=== PATIENT | female | born 1990 | race Caucasian/White ===

== ENCOUNTER → 2018-02-18 15:18 | Outpatient (CLI) | payer OTHER, SELFPAY ==
[2018-02-20 17:59] LABS: Progesterone <0.2 ng/ml
== END ==
PROVIDERS: Visit Provider Obstetrics & Gynecology
DX: N97.0 Female infertility associated with anovulation (principal)
CPT/HCPCS: 36415; 84144

== ENCOUNTER 2018-04-01 11:27 | Outpatient (CLI) | payer OTHER, SELFPAY ==
[2018-04-01 22:00] LABS: Progesterone 8.7 ng/ml
== END 2018-04-01 11:47 ==
PROVIDERS: PCP Nurse Practitioner; Visit Provider Obstetrics & Gynecology
DX: N97.0 Female infertility associated with anovulation (principal)
CPT/HCPCS: 36415; 84144

== ENCOUNTER 2018-04-29 10:34 | Outpatient (CLI) | payer OTHER, SELFPAY ==
[2018-04-29 23:38] LABS: Progesterone 11.8 ng/ml
== END 2018-04-29 10:54 ==
PROVIDERS: PCP Nurse Practitioner; Visit Provider Obstetrics & Gynecology
DX: N97.0 Female infertility associated with anovulation (principal)
CPT/HCPCS: 36415; 84144

== ENCOUNTER 2018-05-07 09:57 | Outpatient (CLI) | payer OTHER, SELFPAY ==
[2018-05-07 11:45] LABS: HCG Quant, Pregnancy 2 mIU/mL (1-3)
== END 2018-05-07 10:17 ==
PROVIDERS: PCP Nurse Practitioner; Visit Provider Obstetrics & Gynecology
DX: O20.0 Threatened abortion (principal)
CPT/HCPCS: 36415; 84702

== ENCOUNTER 2018-05-09 12:17 | Outpatient (CLI) | payer OTHER, SELFPAY ==
[2018-05-09 13:32] LABS: HCG Quant, Pregnancy 1 mIU/mL (1-3)
== END 2018-05-09 12:37 ==
PROVIDERS: PCP Nurse Practitioner; Visit Provider Obstetrics & Gynecology
DX: O20.0 Threatened abortion (principal)
CPT/HCPCS: 36415; 84702

== ENCOUNTER 2018-07-07 13:47 | Outpatient (REF) | payer OTHER, SELFPAY ==
[2018-07-07 15:20] LABS: *AMPHETAMINES SCREEN URINE Negative (Negative); *BARBITURATES SCREEN URINE Negative (Negative); *BENZODIAZEPINES SCREEN URINE Negative (Negative); Cannabinoids THC Negative (Negative); Cocaine Screen,Urine Negative (Negative); METHADONE URINE SCREEN Negative (Negative); OPIATES URINE SCREEN Negative (Negative)
[2018-07-07 15:33] LABS: Tricyclic Antidepressants Negative (Negative)
[2018-07-11 06:51] LABS: Buprenorphine Negative; Norbuprenorphine Negative
[2018-07-11 13:51] LABS: Chlamydia Result Negative; GC Result Negative; Specimen Description URINE
== END 2018-07-07 14:07 ==
LOC: LBN 13:47
PROVIDERS: PCP Nurse Practitioner; Visit Provider Advanced Practice Midwife
DX: Z34.91 Encounter for supervision of normal pregnancy, unspecified, first trimester (principal); Z11.3 Encounter for screening for infections with a predominantly sexual mode of transmission
CPT/HCPCS: 80307; 87491; 87591; 87086

== ENCOUNTER 2018-07-13 10:53 | Outpatient (CLI) | payer OTHER, SELFPAY ==
[2018-07-13 12:01] LABS: Glucose,1 Hr (Glucola) 112 mg/dL (80-140)
[2018-07-13 12:12] LABS: Abs Immature Grans 0.02 k/cumm (0.0-0.09); Absolute Basophil Count 0.02 k/cumm (0.0-0.2); Absolute Eosinophil Count 0.11 k/cumm (0.0-0.7); Absolute Lymphocyte Count 2.09 k/cumm (1.2-3.4); Absolute Monocyte Count 0.77 k/cumm (0.11-0.7); Absolute Neutrophil Count 5.79 k/cumm (1.2-6.7); Basophils % 0.2; Eosinophils % 1.3; HCT 37.9 % (36.0-46.0); Immature Grans % 0.2; Lymphocytes % 23.8; Mean Corp. HGB Concentration 34.3 g/dL (32.0-36.0); Mean Corpuscular Hemoglobin 31.2 pg (27.0-33.0); Mean Corpuscular Volume 90.9 fL (80-95); Mean Platelet Volume 9.3 fL (8.0-11.0); Monocytes % 8.8; Neutrophils % 65.7; Platelet Count 331 x1000/uL (130-400); RBC 4.17 m/cumm (4.00-5.20); RBC Distribution Width 12.4 % (11.7-14.6)
[2018-07-14 10:49] LABS: Rubella IgG Ab (UVM) Positive; Syphilis Serology (RPR) Negative (Negative)
[2018-07-14 10:52] LABS: Varicella IgG Antibody Positive
[2018-07-14 12:19] LABS: Hepatitis C Ab w Rflx HCV PCR Negative (NEGAT)
[2018-07-14 12:31] LABS: HIV-1/2 Ag & Ab Screen Negative (NEGAT)
[2018-07-14 12:35] LABS: Hepatitis B Surface Ag Negative (NEGAT)
== END 2018-07-13 11:13 ==
PROVIDERS: PCP Nurse Practitioner; Visit Provider Advanced Practice Midwife
DX: Z34.91 Encounter for supervision of normal pregnancy, unspecified, first trimester (principal); Z11.59 Encounter for screening for other viral diseases; Z01.84 Encounter for antibody response examination; Z11.4 Encounter for screening for human immunodeficiency virus [HIV]
CPT/HCPCS: 80055; 82950; 86787; 86803; 86850; 86900; 86901; 87340; 87389; 86592; 86762

== ENCOUNTER 2018-08-09 01:16 | Outpatient (CLI) | payer OTHER, SELFPAY ==
--- NOTE | 2018-08-09 09:00 | DI.US_ITS ---
SYMPTOM/DIAGNOSIS: SIZE GREATER THAN DATES, Z34.91 OB ULTRASOUND: The fetus is in variable position. The placenta is anterior. The biometric measurements correspond to 14 weeks 3 days and an EDC of 04 February 2019 cardiac activity was demonstrated at 150 BPM. The left ovary appeared normal. The right ovary is unable to be visualized. The amount of amniotic fluid appears normal. IMPRESSION: Living intrauterine gestation measuring 14 weeks 3 days. Many abnormalities cannot be diagnosed. A normal exam does not exclude a congenital anomaly. Radiology No. [id number] LMP: 05/05/18 Exam Date: 08/09/18 [facility] wks days on EDC ([facility]) 02/09/19 Confirmed: HISTORY: 1ST TRIMESTER (DATING). S>d ? MULTIPLE GESTATION. PREDICTED GESTATIONAL AGE NUMBER 13 +5 weeks with a range of 12 +5 week to 14 +5 weeks. 1 Determined by_XX__1STUS___LMP___HISTORY Info. pertaining to fetus # PLACENTA PRESENTATION Grade 0 Cephalic___ Anterior_XX__Posterior___ Breech____ Right Left Transverse(head right___ Fundal___Low-lying___Previa___ Transverse(head left___ Varying___XX___ BIOMETRY AMNIOTIC FLUID BPD: 28 mm 14 +4 weeks Normal HC: 99 mm 14 +4 weeks AC: 82 mm 14 +4 weeks FL: 14 mm 14 +2 weeks AMNIOTIC FLUID INDEX >26 WK CRL: mm weeks Cisterna Magna: mm CI: 77 RUQ: LUQ Cerebellum: cm EFW: grams Percentile RLQ: LLQ Total: cms Composite AGE= 14 +3 wks EDC by US__02/04/19 BIOPHYSICAL PROFILE ANATOMY IDENTIFIED SCORE 0/2 Heart: 4-Chamber___Rate:BPM__150 BPM___ LVOT: RVOT: Amniotic Fluid(>2cms)____ Stomach: Kidneys: Respirations (>30 secs) Bladder: Post. Fossa: Body Flex/Extension 3 vessel cord: Ventricles: cord insertion: Lips:____ Extremity Flex/Extension spinal morphology: Nose: Total Score= Palate: NS=not seen
== END 2018-08-09 01:36 ==
PROVIDERS: PCP Nurse Practitioner; Visit Provider Advanced Practice Midwife
DX: Z34.91 Encounter for supervision of normal pregnancy, unspecified, first trimester (principal); O26.841 Uterine size-date discrepancy, first trimester
CPT/HCPCS: 76801

== ENCOUNTER 2018-09-16 00:27 | Outpatient (CLI) | payer OTHER, SELFPAY ==
--- NOTE | 2018-09-16 09:27 | DI.US_ITS ---
SYMPTOMS/DIAGNOSIS: SURVEY, Z34.90 OB ULTRASOUND: Routine examination was performed. There is a single living intrauterine gestation. Estimated sonographic age is 19 weeks 4 days. No or placental abnormalities were identified. The heart rate is 141 bpm. The fetus was in various positions during the examination. Amniotic fluid appears within normal limits. IMPRESSION: Single living intrauterine gestation. Estimated sonographic age is 19 weeks 4 days. Many abnormalities cannot be diagnosed. A normal exam does not exclude a congenital anomaly. Radiology No. [id number] LMP: Exam Date: [facility] wks days on EDC ([facility]) 02/09/19 Confirmed: HISTORY: survey PREDICTED GESTATIONAL AGE NUMBER 19+1 weeks with a range of 18+1 weeks to 20+1 weeks. 1 Determined by___1STUS___LMP___HISTORY Info. pertaining to fetus # PLACENTA PRESENTATION Grade I Cephalic___ Anterior X Posterior___ Breech____ Right Left Transverse(head right___ Fundal___Low-lying___Previa Transverse(head left___ Varying X BIOMETRY AMNIOTIC FLUID BPD: 44 mm 19+3 weeks Normal HC: 171 mm 19+5 weeks AC: 146 mm 19+6 weeks FL: 31 mm 19+3 weeks AMNIOTIC FLUID INDEX >26 WK CRL: mm weeks Cisterna Magna: 3.7 mm CI: 78.3 RUQ: LUQ Cerebellum: 1.91 cm EFW: 306 grams Percentile 76% RLQ: LLQ Total: cms Composite AGE= 19+4 wks EDC by US 02/06/19 BIOPHYSICAL PROFILE ANATOMY IDENTIFIED SCORE 0/2 Heart: 4-Chamber X Rate: 141 BPM LVOT: X RVOT: X Amniotic Fluid(>2cms)____ Stomach: X Kidneys: X Respirations (>30 secs) Bladder: X Post. Fossa: X Body Flex/Extension 3 vessel cord: X Ventricles: X cord insertion: X Lips: X Extremity Flex/Extension spinal morphology: X Nose: X Total Score= Palate: X NS=not seen
== END 2018-09-16 00:47 ==
PROVIDERS: PCP Nurse Practitioner; Visit Provider Advanced Practice Midwife
DX: Z34.92 Encounter for supervision of normal pregnancy, unspecified, second trimester (principal)
CPT/HCPCS: 76805

== ENCOUNTER 2018-11-09 09:20 | Outpatient (CLI) | payer OTHER, SELFPAY ==
[2018-11-09 09:51] LABS: Glucose,1 Hr (Glucola) 96 mg/dL (80-140)
[2018-11-09 09:56] LABS: HCT 36.3 % (36.0-46.0); HGB 12.3 g/dL (12.0-15.5); Mean Corp. HGB Concentration 33.9 g/dL (32.0-36.0); Mean Corpuscular Hemoglobin 31.9 pg (27.0-33.0); Mean Corpuscular Volume 94.3 fL (80-95); Mean Platelet Volume 9.1 fL (8.0-11.0); Platelet Count 260 x1000/uL (130-400); RBC 3.85 m/cumm (4.00-5.20); RBC Distribution Width 13.1 % (11.7-14.6); White Blood Cell Count 6.25 k/cumm (4.4-10.8)
== END 2018-11-09 09:40 ==
PROVIDERS: PCP Nurse Practitioner; Visit Provider Advanced Practice Midwife
DX: Z34.93 Encounter for supervision of normal pregnancy, unspecified, third trimester (principal)
CPT/HCPCS: 36415; 82950; 85027

== ENCOUNTER 2018-12-26 10:48 | Outpatient (CLI) | payer OTHER, SELFPAY | END 2018-12-26 11:08 | PROVIDERS: PCP Nurse Practitioner; Visit Provider Advanced Practice Midwife | DX: Z39.1 Encounter for care and examination of lactating mother (principal) | CPT/HCPCS: E0602 ==

== ENCOUNTER 2019-01-16 12:07 | Outpatient (REF) | payer OTHER, SELFPAY ==
[2019-01-16 13:15] LABS: *AMPHETAMINES SCREEN URINE Negative (Negative); *BARBITURATES SCREEN URINE Negative (Negative); *BENZODIAZEPINES SCREEN URINE Negative (Negative); Cannabinoids THC Negative (Negative); Cocaine Screen,Urine Negative (Negative); METHADONE URINE SCREEN Negative (Negative); OPIATES URINE SCREEN Negative (Negative)
[2019-01-16 13:19] LABS: Tricyclic Antidepressants Negative (Negative)
== END 2019-01-16 12:27 ==
LOC: LBN 12:07
PROVIDERS: PCP Nurse Practitioner; Visit Provider Advanced Practice Midwife
DX: Z34.93 Encounter for supervision of normal pregnancy, unspecified, third trimester (principal)
CPT/HCPCS: 80307; 87081

== ENCOUNTER 2019-01-30 13:10 | Observation (INO) | payer OTHER, SELFPAY | END 2019-01-30 14:35 | disposition home or self-care (01) | PROVIDERS: Admitting Provider Advanced Practice Midwife; PCP Nurse Practitioner; Visit Provider Advanced Practice Midwife | DX: O47.1 False labor at or after 37 completed weeks of gestation (principal); Z3A.38 38 weeks gestation of pregnancy | CPT/HCPCS: 59025; G0378 ==

== ENCOUNTER 2019-02-03 07:26 | Inpatient (IN) | payer OTHER, SELFPAY ==
[2019-02-03 10:51] LABS: ROM Plus Positive
[2019-02-03 12:59] LABS: HGB 13.7 g/dL (12.0-15.5); Mean Corp. HGB Concentration 34.3 g/dL (32.0-36.0); Mean Corpuscular Hemoglobin 31.4 pg (27.0-33.0); Mean Corpuscular Volume 91.5 fL (80-95); Mean Platelet Volume 9.6 fL (8.0-11.0); Platelet Count 253 x1000/uL (130-400); RBC 4.37 m/cumm (4.00-5.20); RBC Distribution Width 13.4 % (11.7-14.6); White Blood Cell Count 9.29 k/cumm (4.4-10.8)
[2019-02-03] MEDS: Normal Saline Flush 10 ML SYR IVP (15:50)
[2019-02-03] MEDS: Lactated Ringers 1,000 ML 125 ML IV (15:51)
[2019-02-03] MEDS: Acetaminophen 325 MG TAB 650 MG PO (19:50)
[2019-02-03] MEDS: Ibuprofen 600 MG TAB PO (19:50)
[2019-02-04] MEDS: Acetaminophen 325 MG TAB 650 MG PO ×2 (06:45→18:46)
[2019-02-04] MEDS: Ibuprofen 600 MG TAB PO ×2 (06:45→18:46)
[2019-02-04 07:58] LABS: HCT 38.6 % (36.0-46.0); HGB 12.8 g/dL (12.0-15.5); Mean Corp. HGB Concentration 33.2 g/dL (32.0-36.0); Mean Corpuscular Hemoglobin 30.5 pg (27.0-33.0); Mean Corpuscular Volume 92.1 fL (80-95); Mean Platelet Volume 9.6 fL (8.0-11.0); Platelet Count 232 x1000/uL (130-400); RBC 4.19 m/cumm (4.00-5.20); RBC Distribution Width 13.3 % (11.7-14.6); White Blood Cell Count 12.19 k/cumm (4.4-10.8)
== END 2019-02-04 19:45 | disposition home or self-care (01) | DRG 807 ==
PROVIDERS: Admitting Provider Advanced Practice Midwife; PCP Nurse Practitioner; Visit Provider Advanced Practice Midwife
DX: O42.12 Full-term premature rupture of membranes, onset of labor more than 24 hours following rupture (principal); Z37.0 Single live birth; Z3A.39 39 weeks gestation of pregnancy; O62.1 Secondary uterine inertia; O76 Abnormality in fetal heart rate and rhythm complicating labor and delivery; O69.81X0 Labor and delivery complicated by cord around neck, without compression, not applicable or unspecified; O62.3 Precipitate labor
CPT/HCPCS: 36415; 84112; 85027; 86850; 86900; 86901; J3490

== ENCOUNTER 2019-12-26 18:06 | Outpatient (REF) | payer OTHER, SELFPAY ==
[2019-12-26 14:39] LABS: *AMPHETAMINES SCREEN URINE Negative (Negative); *BARBITURATES SCREEN URINE Negative (Negative); *BENZODIAZEPINES SCREEN URINE Negative (Negative); Cannabinoids THC Negative (Negative); Cocaine Screen,Urine Negative (Negative); METHADONE URINE SCREEN Negative (Negative); OPIATES URINE SCREEN Negative (Negative)
[2019-12-26 14:40] LABS: Tricyclic Antidepressants Negative (Negative)
[2020-01-02 10:50] LABS: Buprenorphine Negative; Norbuprenorphine Negative
== END 2019-12-26 18:26 ==
LOC: LBN 18:06
PROVIDERS: PCP Nurse Practitioner; Visit Provider Advanced Practice Midwife
DX: Z34.91 Encounter for supervision of normal pregnancy, unspecified, first trimester (principal)
CPT/HCPCS: 80307; 87086

== ENCOUNTER 2020-01-25 10:38 | Outpatient (REF) | payer OTHER, SELFPAY ==
[2020-01-25 10:55] LABS: Abs Immature Grans 0.01 k/cumm (0.0-0.09); Absolute Basophil Count 0.02 k/cumm (0.0-0.2); Absolute Eosinophil Count 0.06 k/cumm (0.0-0.7); Absolute Lymphocyte Count 1.44 k/cumm (1.2-3.4); Absolute Monocyte Count 0.46 k/cumm (0.11-0.7); Absolute Neutrophil Count 3.76 k/cumm (1.2-6.7); Basophils % 0.3; HGB 12.3 g/dL (12.0-15.5); Immature Grans % 0.2 %; Mean Corp. HGB Concentration 34.2 g/dL (32.0-36.0); Mean Corpuscular Hemoglobin 31.5 pg (27.0-33.0); Mean Corpuscular Volume 92.1 fL (80-95); Mean Platelet Volume 9.3 fL (8.0-11.0); Neutrophils % 65.5; Platelet Count 338 x1000/uL (130-400); RBC 3.91 m/cumm (4.00-5.20); RBC Distribution Width 12.9 % (11.7-14.6); White Blood Cell Count 5.75 k/cumm (4.4-10.8)
[2020-01-25 11:37] LABS: Glucose,1 Hr (Glucola) 77 mg/dL (80-140)
[2020-01-25 11:49] LABS: TSH (W/Ref FT4) 0.95 uIU/mL (0.36-3.74)
[2020-01-26 10:49] LABS: Varicella IgG Antibody Positive (See Note)
[2020-01-26 10:55] LABS: Rubella IgG Ab (UVM) Positive (See Note)
[2020-01-26 10:58] LABS: Hepatitis B Surface Ag Negative (Negative)
[2020-01-26 11:30] LABS: Hepatitis C Ab w Rflx HCV PCR Negative (Negative)
[2020-01-26 11:57] LABS: HIV-1/2 Ag & Ab Screen Negative (Negative)
[2020-01-26 13:43] LABS: Chlamydia Result Negative (Negative); GC Result Negative (Negative)
[2020-01-27 15:15] LABS: Syphilis Total Ab w/Reflex Nonreactive (Nonreactive)
== END 2020-01-25 10:58 ==
LOC: LBN 10:38
PROVIDERS: Advanced Practice Midwife; PCP Nurse Practitioner; Visit Provider Obstetrics & Gynecology
DX: Z34.91 Encounter for supervision of normal pregnancy, unspecified, first trimester (principal); Z11.4 Encounter for screening for human immunodeficiency virus [HIV]; Z11.59 Encounter for screening for other viral diseases; Z01.84 Encounter for antibody response examination; Z11.3 Encounter for screening for infections with a predominantly sexual mode of transmission
CPT/HCPCS: 82950; 86787; 86803; 86850; 86900; 86901; 87340; 87389; 87491; 87591; 84443; 85025; 86762; 86780

== ENCOUNTER 2020-02-15 01:16 | Outpatient (CLI) | payer OTHER, SELFPAY ==
--- NOTE | 2020-02-15 07:00 | DI.US_ITS ---
EXAM: US OB 2-3 TRIMESTER CLINICAL HISTORY: routine pnc,Z34.82 TECHNIQUE: Ultrasound performed using standard protocol. COMPARISON: US US OB 2-3 trimester from 09/16/2018 FINDINGS: Axially region is sign 0 B ultrasound February 14 Ob ultrasound was performed utilizing 2nd trimester protocol. biometry is consistent with gestational age of 18 weeks 6 days and EDC of July 12, 2020. Placenta is anterior. Placenta contains a couple of 2 cm anechoic regions which are nonspeci fic in appearance but show no internal vascularity and are consistent with placental lakes. No follo w-up recommended. Lower placental margin is about 3.7 cm from the internal cervical os. There is a normal quantity of amniotic fluid. anomaly screen is within normal limits as per the attached checklist. heart rate is 136 BPM. IMPRESSION: DATA REPOSITORY:
== END 2020-02-15 01:36 ==
PROVIDERS: PCP Nurse Practitioner; Visit Provider Advanced Practice Midwife
DX: Z34.92 Encounter for supervision of normal pregnancy, unspecified, second trimester (principal)
CPT/HCPCS: 76805

== ENCOUNTER 2020-04-11 04:37 | Outpatient (CLI) | payer OTHER, SELFPAY ==
[2020-04-11 10:03] LABS: Abs Immature Grans 0.06 10^3/uL (0.0-0.06); Absolute Basophil Count 0.02 10^3/uL (0.0-0.2); Absolute Eosinophil Count 0.12 10^3/uL (0.0-0.7); Absolute Lymphocyte Count 1.69 10^3/uL (1.2-3.4); Absolute Monocyte Count 0.66 10^3/uL (0.1-0.8); Absolute Neutrophil Count 6.05 10^3/uL (1.2-6.7); Basophils % 0.2; Eosinophils % 1.4; HCT 34.4 % (36.0-46.0); HGB 11.7 g/dL (11.2-15.7); Immature Grans % 0.7; Lymphocytes % 19.7; MCH 31.9 pg (27.0-33.0); MCV 93.7 fL (80-95); MPV 8.7 fL (8.0-11.0); Monocytes % 7.7; Neutrophils % 70.3; Nucleated RBC 0 %; Platelet Count 288 10^3/uL (130-400); RBC 3.67 10^6/uL (3.93-5.22); RDW 12.7 % (11.7-14.6); RDW-SD 43.7 fL
[2020-04-11 10:06] LABS: Glucose,1 Hr (Glucola) 120 mg/dL (80-140)
== END 2020-04-11 04:57 ==
PROVIDERS: PCP Nurse Practitioner; Visit Provider Obstetrics & Gynecology Gynecology
DX: Z34.92 Encounter for supervision of normal pregnancy, unspecified, second trimester (principal); Z3A.27 27 weeks gestation of pregnancy
CPT/HCPCS: 36415; 82950; 85025

== ENCOUNTER 2020-04-14 09:20 | Outpatient (CLI) | payer OTHER, SELFPAY ==
[2020-04-14 10:02] VITALS: BP 121/72; PULSE 91; TEMP 36.9
[2020-04-14 10:20] VITALS: BP 121/72; PULSE 91
[2020-04-14 11:08] LABS: Bilirubin Negative (Negative); Blood Negative (Negative); Clarity Clear (Clear); Glucose Negative (Negative); Ketones Negative (Negative); Leukocyte Esterase Negative (Negative); Nitrite Negative (Negative); Specific Gravity 1.015 (1.005-1.025); Urobilinogen 0.2 EU/dL (Up TO 0.2)
--- NOTE | 2020-04-15 07:43 | W.OBNST ---
Date of service: 04/15/20 Time of Service: 07:43 NST Evaluation Reason for NST Reasons for Nonstress Test: LABOR Gestational Age Gestational Age in Weeks and Days: 27 Weeks and 2Days Test and Monitor Explained Test/Monitor Explained: Test Explained, Monitor Explained and Patient Verbalized Understanding Vital Signs Blood Pressure: 121/72 Pulse: 91 Temperature: 98.4 F Urine Results Urine Protein: Negative Urine Ketones: Negative Urine Glucose: Negative Urine Blood: Negative NST Information Date on Monitor: 04/14/20 Time on Monitor: 10:05 Date off Monitor: 04/14/20 Time off Monitor: 10:55 Total Time on Monitor: 50 NST Interventions: None and PO Hydration NST Evaluation Patient States Movement: Present Variability: Moderate 6-25 bpm Accelerations: 15x15 Decelerations: None NST Results: Reactive Note NST Note Note: Category 1 strip. No labor NST Reviewed and Verified by: Dee Alanis
[2020-04-15 07:44] VITALS: BP 121/72; PULSE 91; TEMP 36.9
== END 2020-04-14 11:09 | disposition home or self-care (01) ==
LOC: BCD 09:21 → OBS 09:29
PROVIDERS: PCP Nurse Practitioner; Visit Provider Obstetrics & Gynecology
DX: O60.02 Preterm labor without delivery, second trimester (principal); Z3A.27 27 weeks gestation of pregnancy
CPT/HCPCS: 59025; 81003

== ENCOUNTER 2020-04-16 14:15 | Outpatient (CLI) | payer OTHER, SELFPAY ==
[2020-04-16 15:41] VITALS: BP 112/62; PULSE 85; TEMP 36.3
[2020-04-16 15:55] VITALS: BP 112/62; PULSE 85
[2020-04-16 16:35] LABS: Fetal Fibronectin Negative (Negative)
--- NOTE | 2020-05-20 09:05 | W.OBNST ---
Date of service: 04/16/20 Time of Service: 09:05 NST Evaluation Reason for NST Reasons for Nonstress Test: OTHER, SEE COMMENT Reason for NST Other: Rule out labor Gestational Age Gestational Age in Weeks and Days: 27 Weeks and 4Days Test and Monitor Explained Test/Monitor Explained: Test Explained, Monitor Explained and Patient Verbalized Understanding Vital Signs Blood Pressure: 112/62 Pulse: 85 Temperature: 97.3 F NST Information Date on Monitor: 04/16/20 Time on Monitor: 15:53 Date off Monitor: 04/16/20 Time off Monitor: 16:13 Total Time on Monitor: 20 NST Interventions: PO Hydration NST Evaluation Patient States Movement: Present FHR Baseline: 155 Variability: Moderate 6-25 bpm Accelerations: 15x15 Decelerations: None NST Results: Reactive Note NST Note NST Reviewed and Verified by: Nam Nichole
[2020-05-20 09:06] VITALS: BP 112/62; PULSE 85; TEMP 36.3
[2020-06-09 06:51] VITALS: BP 112/62; PULSE 85; TEMP 36.3
--- NOTE | 2020-06-09 06:51 | W.OBNST ---
Date of service: 04/16/20 Time of Service: 16:00 NST Evaluation Reason for NST Reasons for Nonstress Test: OTHER, SEE COMMENT Reason for NST Other: Rule out labor Gestational Age Gestational Age in Weeks and Days: 27 Weeks and 4Days Test and Monitor Explained Test/Monitor Explained: Test Explained, Monitor Explained and Patient Verbalized Understanding Vital Signs Blood Pressure: 112/62 Pulse: 85 Temperature: 97.3 F NST Information Date on Monitor: 04/16/20 Time on Monitor: 15:53 Date off Monitor: 04/16/20 Time off Monitor: 16:13 Total Time on Monitor: 20 NST Interventions: PO Hydration NST Evaluation Patient States Movement: Present FHR Baseline: 155 Variability: Moderate 6-25 bpm Accelerations: 15x15 Decelerations: None NST Results: Reactive Note NST Note NST Reviewed and Verified by: Nam Nichole
== END 2020-04-16 16:20 | disposition home or self-care (01) ==
LOC: BCD 14:16 → OBS 14:32 → BCD 14:37 → OBS 14:40
PROVIDERS: PCP Nurse Practitioner; Visit Provider Obstetrics & Gynecology
DX: O60.03 Preterm labor without delivery, third trimester (principal); Z3A.27 27 weeks gestation of pregnancy
CPT/HCPCS: 59025; 82731

== ENCOUNTER 2020-05-16 00:33 | Outpatient (CLI) | payer OTHER, SELFPAY ==
--- NOTE | 2020-05-16 06:15 | DI.US_ITS ---
EXAM: US OB FRANNIE WEIGHT CLINICAL HISTORY: Size greater than dates,Z34.90. TECHNIQUE: Transabdominal obstetrical ultrasound performed. COMPARISON: US US OB 2-3 TRIMESTER from 02/15/2020 FINDINGS: Transabdominal obstetrical ultrasound performed. FINDINGS: Number of fetuses: One. position: Breech Placental location: Anterior no evidence of previa. BIOMETRIC DATA: EFW: 1888 grms 44% Composite Age: 32 weeks EDC: 07/11/2020 Heart Rate: 153BPM Amniotic fluid index: 15.5 cm. Visually, amount of fluid is within normal limits. IMPRESSION: 1. Single live intrauterine gestation as above. 2. Estimated weight is 1888gms. 3. Amniotic fluid index is 15.5 cm. Visually within normal limits. DATA REPOSITORY:
== END 2020-05-16 00:53 ==
PROVIDERS: PCP Nurse Practitioner; Visit Provider Obstetrics & Gynecology
DX: Z34.93 Encounter for supervision of normal pregnancy, unspecified, third trimester (principal)
CPT/HCPCS: 76816

== ENCOUNTER 2020-06-21 22:17 | Outpatient (REF) | payer OTHER, SELFPAY ==
[2020-06-21 16:59] LABS: *AMPHETAMINES SCREEN URINE Negative (Negative); *BARBITURATES SCREEN URINE Negative (Negative); *BENZODIAZEPINES SCREEN URINE Negative (Negative); Cannabinoids THC Negative (Negative); Cocaine Screen,Urine Negative (Negative); METHADONE URINE SCREEN Negative (Negative); OPIATES URINE SCREEN Negative (Negative); Tricyclic Antidepressants Negative (Negative)
[2020-06-28 16:59] LABS: Buprenorphine Negative
== END 2020-06-21 22:37 ==
LOC: LBN 22:17
PROVIDERS: PCP Nurse Practitioner; Visit Provider Obstetrics & Gynecology Gynecology
DX: Z34.93 Encounter for supervision of normal pregnancy, unspecified, third trimester (principal)
CPT/HCPCS: 80307; 87081

== ENCOUNTER 2020-07-08 08:15 | Inpatient (IN) | payer OTHER, SELFPAY ==
[2020-07-08] VITALS (57 sets, daily range): BP systolic 107–128; BP diastolic 54–77; PULSE 62–99; RESP 16–20; TEMP 36.4–37.2; O2SAT 96–100
[2020-07-08 09:11] LABS: HCT 37.2 % (36.0-46.0); HGB 12.3 g/dL (11.2-15.7); MCH 30.6 pg (27.0-33.0); MCHC 33.1 % (32.0-36.0); MCV 92.5 fL (80-95); MPV 9.1 fL (8.0-11.0); Platelet Count 255 10^3/uL (130-400); RBC 4.02 10^6/uL (3.93-5.22)
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
--- NOTE | 2020-07-08 12:47 | W.PM.OBNL1 ---
Date of service: 07/08/20 Time of Service: 12:47 Informed Consent Informed Consent: Risk,Benefits,Alternatives Discussed (Pt is agreeable to expectant management - would like to labor w/o epidural) Pelvic Exam Dilation: 3 Effacement (%): 25 station: -1 ( vtx better applied.) Position: OA Cervix Position: mid Consistency: soft Vaginal Exam Presentation: Cephalic Pooling: Positive (fluid is running down her leg) Contractions Monitor Mode: External Contraction Frequency(min): Q3-4 Contraction Duration(sec): 40-60 Fetus A Monitor: External (US) Heart Rate Baseline: 140 Presentation: Cephalic Variability: Moderate (6-25 BPM) Categories: Category I FHR Rhythm: Regular Characteristics: Normal Accelerations: Present Decelerations: None Amniotic Membrane Status: Ruptured Assessment and Plan Assessment and plan (1) SROM (spontaneous rupture of membranes): Status: Acute Objective Temp Pulse Resp BP 97.5 F L 79 20 122/65 07/08/20 11:02 07/08/20 11:02 07/08/20 11:02 07/08/20 11:02 Laboratory Results WBC 10.20 10^3/uL (4.4-10.8) 07/08/20 09:00 RBC 4.02 10^6/uL (3.93-5.22) 07/08/20 09:00 Hgb 12.3 g/dL (11.2-15.7) 07/08/20 09:00 Hct 37.2 % (36.0-46.0) 07/08/20 09:00 MCV 92.5 fL (80-95) 07/08/20 09:00 MCH 30.6 pg (27.0-33.0) 07/08/20 09:00 MCHC 33.1 % (32.0-36.0) 07/08/20 09:00 RDW 13.0 % (11.7-14.6) 07/08/20 09:00 Plt Count 255 10^3/uL (130-400) 07/08/20 09:00 MPV 9.1 fL (8.0-11.0) 07/08/20 09:00 Patient ABO/Rh A Positive 07/08/20 09:00 Antibody Screen Negative 07/08/20 09:00 Subjective Patient Reports: No new Complaints Interval history since last seen: Feeling contractions, OOB feels better than lying in bed. Interventions Pain Management Interventions: Coping Well, No Interventions needed . Results Hemoglobin/Hematocrit: Hgb 12.3 g/dL (11.2-15.7) 07/08/20 09:00 Hct 37.2 % (36.0-46.0) 07/08/20 09:00 Procedure Procedures: Other (continue to await active labor.)
[2020-07-08] MEDS: Lactated Ringers 1,000 ML 125 ML IV ×2 (16:40→20:41)
[2020-07-08] MEDS: Normal Saline Flush 10 ML SYR IVP (16:40)
[2020-07-08] MEDS: FentaNYL/ROPIvacaine 2 mcg/ml and 0.1% 200 ML CADD Cassette EP (17:38)
--- NOTE | 2020-07-08 17:53 | W.PM.OBNL1 ---
Date of service: 07/08/20 Time of Service: 17:53 Informed Consent Informed Consent: Augmentation of Labor and Risk,Benefits,Alternatives Discussed (Pt is agreeable to expectant management - would like to labor w/o epidural) Pelvic Exam Pooling: Positive Comments: Continues with leaking clear amniotic fluid Contractions Monitor Mode: External Contraction Frequency(min): 4 Contraction Duration(sec): 40-60 Intensity: Mild/Moderate Fetus A Monitor: External (US) Heart Rate Baseline: 160 (Baseline change. ) Variability: Moderate (6-25 BPM) Categories: Category I FHR Rhythm: Regular Characteristics: Normal Accelerations: 15 X 15 Decelerations: Variable (episodic, not assoc with contx) Recurrence: Intermittent Amniotic Membrane Status: Ruptured Assessment and Plan Assessment and plan (1) SROM (spontaneous rupture of membranes): Status: Acute Objective Temp Pulse Resp BP Pulse Ox 99.0 F 93 H 16 119/63 98 07/08/20 17:02 07/08/20 17:51 07/08/20 17:02 07/08/20 17:41 07/08/20 17:51 Laboratory Results WBC 10.20 10^3/uL (4.4-10.8) 07/08/20 09:00 RBC 4.02 10^6/uL (3.93-5.22) 07/08/20 09:00 Hgb 12.3 g/dL (11.2-15.7) 07/08/20 09:00 Hct 37.2 % (36.0-46.0) 07/08/20 09:00 MCV 92.5 fL (80-95) 07/08/20 09:00 MCH 30.6 pg (27.0-33.0) 07/08/20 09:00 MCHC 33.1 % (32.0-36.0) 07/08/20 09:00 RDW 13.0 % (11.7-14.6) 07/08/20 09:00 Plt Count 255 10^3/uL (130-400) 07/08/20 09:00 MPV 9.1 fL (8.0-11.0) 07/08/20 09:00 Patient ABO/Rh A Positive 07/08/20 09:00 Antibody Screen Negative 07/08/20 09:00 Vital Signs Reviewed: Yes Notable Details: TMax 99. Will continue to follow Subjective Patient Reports: No new Complaints Interval history since last seen: It has been ~10 hrs since SROM this am. Pt remains comfortable with contractions irreg. SVE deferred. I have recommended beginning Oxytocin infusion. She is agreeable to the plan. Will use epidural for labor analgesia. Interventions Pain Management (place epidural prior to start of Oxytocin infusion.) Interventions: Epidural Epidural Placed by:: Nini Mills once in place will begin Oxytocin infusion for labor augmentation. . . Results Hemoglobin/Hematocrit: Hgb 12.3 g/dL (11.2-15.7) 07/08/20 09:00 Hct 37.2 % (36.0-46.0) 07/08/20 09:00
[2020-07-08] MEDS: Oxytocin/Normal Saline 30 UNIT/500 ML BAG 2 UNITS IV (17:58)
[2020-07-08] MEDS: Ibuprofen 600 MG TAB PO (23:54)
[2020-07-09] VITALS (7 sets, daily range): BP systolic 112–129; BP diastolic 68–82; PULSE 70–91; RESP 16–18; TEMP 36.5–36.9; O2SAT 96
[2020-07-09 00:38] LABS: COVID-19 RT-PCR UVMMC Result Negative (Negative)
[2020-07-09] MEDS: Normal Saline Flush 10 ML SYR IVP (01:04)
[2020-07-09] MEDS: Docusate Sodium 100 MG CAP PO ×2 (07:47→18:22)
[2020-07-09] MEDS: Ibuprofen 600 MG TAB PO ×2 (07:47→14:43)
[2020-07-09] MEDS: Acetaminophen 325 MG TAB 650 MG PO ×2 (07:48→14:43)
--- NOTE | 2020-07-09 12:36 | W.OBDELIVERY ---
Date of service: 07/09/20 Time of Service: 12:36 OB Labor/ Delivery Information Baby A Delivery Delivery Method: Spontaneaous Presentation: Cephalic Cephalic Position: Vertex Vertex Position: Left Occipital Anterior Cord Description-Baby A: 3 Vessels Amniotic Fluid: Clear Estimated Blood Loss: 200 Delivery Outcome: Liveborn Complications: none Transferred: Remains with Mother Providers Doctor: Merna Haro Nurse: Abril Miller Nurse: Paige Shaffer Labor/Delivery Information Number of Babies in Womb: 1 Steroids Given: None Reason Steroids Not Administered: N/A Group Beta Strep: Negative Antibiotics Administered: No Rubella Status: Immune Blood Type: A+ Varicella Immunity: Immune Shoulder Dystocia: No Stages of Labor Onset of Labor Date: 07/08/20 Onset of Labor Time: 07:15 Complete Dilatation Date: 07/08/20 Complete Dilatation Time: 22:57 Labor - Stage 1 Duration: 0 minutes ROM Baby A: 07/08/20 ROM Baby A: 07:15 ROM Total Time- Baby A: [id number] Infant Delivery Date-Baby A: 07/08/20 Infant Delivery Time-Baby A: 21:06 Labor Stage 2 Duration: -111 minutes Placenta Delivery Date-Baby A: 07/08/20 Placenta Delivery Time-Baby A: 21:11 Labor-Stage 3 Duration: 5 minutes Total Length of Labor-Baby A: 13 hours and 51 minutes Placenta Cultured: No Placenta Status: Delivered (intact,normal configuration, 3v cord) Baby A Gender: Female (Name: Leticia) Gestational Status: Term (39-41.6 wks) Gestational Age in Weeks/Days: 39 Weeks and 3 Days weight: 8 lb 13.978 oz Length-Baby A: 20.75 in Head Circumference-Baby A: 13.25 in Score-1 Minute Interval(Baby A) Heart Rate-1 minute: 100 BPM or Greater Respiratory Effort- 1 minute: Spontaneous/Strong Cry Muscle Tone-1 minute: Active Movement Reflex Response-1 minute: Prompt Response Color-1 minute: Pallor or Cyanosis Total Score-1 minute: 8 Score-5 Minute Interval(Baby A) Heart Rate- 5 minute: 100 BPM or Greater Respiratory Effort-5 minute: Spontaneous/Strong Cry Muscle Tone-5 minute: Active Movement Reflex Response-5 minute: Prompt Response Color-5 minute: Bluish Hands or Feet Total Score- 5 minute: 9 Procedure Procedures: Cord Blood Collection (for lab.) Interventions Other (Perineum intact. No repair required.) Shoulder Dystocia Delivery Times Head to Body Delivery Interval(minutes): no dystocia Verify No Fundal Pressure Applied Fundal Pressure: No Pressure Applied
--- NOTE | 2020-07-09 12:42 | OBPPV_ITS ---
Date of service: 07/09/20 Time of Service: 12:42 Assessment and Plan Assessment and plan (1) Normal vaginal delivery of third : Status: Acute Assessment and plan: Satisfactory recovery from . Pt would like to be discharged today however Peds may wish to keep infant 24hrs. Subjective Subjective Patient comments: No complaints and Tolerating diet Patient's Mood: Good [place] baby status: Doing well, Nursing well and Strong Bonding Observed feeding status: Exclusively breast feeding Exam Physical Exam Vital signs: Temp Pulse Resp BP Pulse Ox 97.9 F 70 16 117/73 98 07/09/20 07:40 07/09/20 07:40 07/09/20 07:40 07/09/20 07:40 07/08/20 21:05 Constitutional Constitutional: no acute distress HEENT Exam HEENT Exam: Not Done Neck Exam Neck Exam: Not Done Respiratory Exam Respiratory Exam: Normal Cardiovascular Exam Cardiovascular Exam: Normal Abdominal Exam Comments: non-tender. Fundal Exam Fundus: Below Umbilicus and Firm Rectal Exam Rectal Exam: Not Done Extremities Exam Extremity Exam: Normal Back/Spine/Pelvis Exam Back Exam: Normal Skin Exam Skin Exam: Normal Neurological Exam Neurological Exam: Normal Psychiatric Exam Psychiatric Exam: Normal Results Hemoglobin/Hematocrit: Hgb 12.3 g/dL (11.2-15.7) 07/08/20 09:00 Hct 37.2 % (36.0-46.0) 07/08/20 09:00
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
[2020-07-10 04:26] VITALS: BP 106/72; PULSE 81
== END 2020-07-09 21:45 | disposition home or self-care (01) | DRG 807 ==
PROVIDERS: Admitting Provider Obstetrics & Gynecology Gynecology; PCP Nurse Practitioner; Visit Provider Obstetrics & Gynecology Gynecology
DX: O99.284 Endocrine, nutritional and metabolic diseases complicating childbirth (principal); Z37.0 Single live birth; Z3A.39 39 weeks gestation of pregnancy; E28.2 Polycystic ovarian syndrome; O99.344 Other mental disorders complicating childbirth; F90.9 Attention-deficit hyperactivity disorder, unspecified type
CPT/HCPCS: 36415; 85027; 86850; 86900; 86901; NC; U0003

== ENCOUNTER 2021-02-07 10:41 | Outpatient (REF) | payer OTHER, SELFPAY ==
--- NOTE | 2021-02-07 09:00 | PAPFT_PTH ---
PATIENT: Mayuri Fowler LOC: [facility]#:[id number] AGE/SX: 30/F ROOM: RE02/07/[address]: Marion Chaudhry : 1990 BED: DIS: 02/07/2021 SPEC #: [id number] RECD: 02/07/21 13:22 STATUS: HAYDEE REHubert #: [id number] ARYAN: 02/07/21 09:[address]: Marion Chaudhry DEPT: [facility] Cytology RECD BY: Zunilda Shields ENTERED: 02/07/21 13:22 SP TYPE: PAPFT OTHR DR: Chen Traylor Tissues: 1 - CX/ENDOCX FOR PAP SMEARS Procedures: PAP THIN PREP/UVM Screening Comments: [id number]
== END 2021-02-07 10:42 | disposition home or self-care (01) ==
LOC: NCHCN 10:41
PROVIDERS: PCP Nurse Practitioner; Visit Provider Nurse Practitioner Family
DX: Z00.00 Encounter for general adult medical examination without abnormal findings (principal); Z12.4 Encounter for screening for malignant neoplasm of cervix; Z01.419 Encounter for gynecological examination (general) (routine) without abnormal findings; R87.612 Low grade squamous intraepithelial lesion on cytologic smear of cervix (LGSIL)
CPT/HCPCS: 88142

== ENCOUNTER 2021-05-30 12:14 | Outpatient (CLI) | payer OTHER, SELFPAY ==
--- NOTE | 2021-05-30 11:30 | DI.RAD_ITS ---
Exam(s) XR HIP LT COMPLETE AP PELVIS EXAM: XR HIP LT COMPLETE AP PELVIS INDICATION: left hip pain. COMPARISON: CR THORACIC SPINE from 09/20/2009 CR THORACIC SPINE from 09/20/2009 TECHNIQUE: 2D digital imaging was performed. FINDINGS: Hip joint spaces are well maintained. Mild spurring margin of left femoral head. No tendon or joint space calcifications. No significant acetabular spurring. No acetabular femoral head deformity. S clerosis at the pubic symphysis likely related to childbirth. IMPRESSION: Mild degenerative changes of the left hip. DATA REPOSITORY: RADIATION DOSE DELIVERED:
== END 2021-05-30 12:15 | disposition home or self-care (01) ==
LOC: DIORS 12:15
PROVIDERS: PCP Nurse Practitioner; Referring Provider Nurse Practitioner; Visit Provider Student in an Organized Health Care Education/Training Program
DX: M25.552 Pain in left hip (principal); M16.12 Unilateral primary osteoarthritis, left hip
CPT/HCPCS: 73502

== ENCOUNTER 2021-06-12 01:01 | Outpatient (CLI) | payer OTHER, SELFPAY ==
--- NOTE | 2021-06-12 07:30 | DI.RAD_ITS ---
Exam(s) RF JOINT INJECTION FLUORO GUID EXAM: RF JOINT INJECTION FLUORO GUID CLINICAL HISTORY: L HIP INJ UNDER FLUORO,FEMOROACETABULAR IMPINGEMENT LT HIP, M25.852 TECHNIQUE: Fluoroscopy provided. Radiologist not present. CONTRAST MATERIAL: None COMPARISON: No exams were available for comparison FINDINGS: Fluoroscopy was provided for Dr. Beck during left hip therapeutic injection. Submitted image(s) reveal distal tip needle at the lateral femoral head level. Intra-articular contr ast injected Please refer to the procedure report for complete details. Cumulative Dose: brian Shannon=1.19 mGy IMPRESSION: RADIATION DOSE DELIVERED:
[2021-06-12] MEDS: methylPREDNISolone ACETATE 80 MG/ML VIAL IM (13:39)
[2021-06-12] MEDS: Omnipaque 300 MG/ML 10 ML BTL IJ (13:39)
[2021-06-12] MEDS: Bupivacaine 0.5% Pres-Free 10 ML VIAL 5 ML IJ (13:40)
--- NOTE | 2021-06-12 21:10 | W.PROCNOTE ---
Date of service: 06/13/21 Time of Service: 13:31 Procedure Note Date of procedure: 06/12/21 Procedure: Left Hip Injection with Fluoroscopic Guidance Surgeon/Proceduralist/Physician: Shon Beck Procedure Diagnosis: Left Hip Impingement Procedure Indications: Mayuri has had persistent pain of the LEFT hip and groin. Noninvasive measures have been tried. To serve as both diagnostic and therapeutic, an injection under fluoroscopy was recommended. I had discussed the risks of the procedure and the patient elected to proceed. Procedure Description: Mayuri was greeted in the flouroscopy room. The correct side was identified and the consent was reviewed with the patient and signed. The patient was then placed in the supine position on the fluoroscopy table. The LEFT hip was then prepped with Chloraprep. The anterolateral injection starting point was identiifed by bony landmarks and fluoroscopy. The skin and soft tissue in the tract of the injection was anesthetized with 1% Lidocaine. A spinal needle was then inserted deep into the hip joint at the level of the lateral femoral neck under fluoroscopic guidance. A small amount of Omnipaque solution was injected to confirm intraarticular placement. Once confirmed, the hip was injected with 6cc of 0.5% Bupivicaine and 80mg of Depo-Medrol. A bandaid was placed on the injection site. The patient tolerated the procedure well and noted improvement in pre-injection pain.
== END 2021-06-12 01:21 ==
PROVIDERS: PCP Nurse Practitioner; Visit Provider Student in an Organized Health Care Education/Training Program
DX: M25.852 Other specified joint disorders, left hip (principal); M25.552 Pain in left hip; R10.32 Left lower quadrant pain
CPT/HCPCS: 20610; 77002; J1040

== ENCOUNTER 2021-06-25 15:07 | Outpatient (CLI) | payer OTHER, SELFPAY ==
[2021-06-25 16:03] LABS: HCG Quant, Pregnancy 334 mIU/mL (1-3)
== END 2021-06-25 15:08 | disposition home or self-care (01) ==
LOC: LBO 15:08
PROVIDERS: PCP Nurse Practitioner; Visit Provider Obstetrics & Gynecology Gynecology
DX: O20.8 Other hemorrhage in early pregnancy (principal)
CPT/HCPCS: 36415; 84702

== ENCOUNTER 2021-08-06 01:22 | Outpatient (CLI) | payer OTHER, SELFPAY ==
[2021-08-06 11:06] LABS: Abs Immature Grans 0.02 10^3/uL (0.0-0.06); Absolute Basophil Count 0.04 10^3/uL (0.0-0.2); Absolute Monocyte Count 0.63 10^3/uL (0.1-0.8); Absolute Neutrophil Count 4.76 10^3/uL (1.2-6.7); Basophils % 0.5; Eosinophils % 1.3; HCT 36.9 % (36.0-46.0); HGB 12.5 g/dL (11.2-15.7); Immature Grans % 0.3; Lymphocytes % 25.5; MCH 30.5 pg (27.0-33.0); MCHC 33.9 % (32.0-36.0); MPV 8.6 fL (8.0-11.0); Monocytes % 8.5; Neutrophils % 63.9; Nucleated RBC 0 %; Platelet Count 337 10^3/uL (130-400); RDW 12.2 % (11.7-14.6); RDW-SD 40.1 fL; WBC 7.45 10^3/uL (4.4-10.8)
[2021-08-06 11:29] LABS: Glucose,1 Hr (Glucola) 161 mg/dL (80-140)
[2021-08-07 08:52] LABS: Hepatitis B Surface Ag Negative (Negative)
[2021-08-07 09:09] LABS: Varicella IgG Antibody Positive (See Note)
[2021-08-07 09:15] LABS: Rubella IgG Ab (UVM) Positive (See Note)
[2021-08-07 09:28] LABS: HIV-1/2 Ag & Ab Screen Negative (Negative)
[2021-08-07 09:45] LABS: Hepatitis C Ab w Rflx HCV PCR Negative (Negative)
[2021-08-07 14:31] LABS: Syphilis Total Ab w/Reflex Nonreactive (Nonreactive)
== END 2021-08-06 01:23 | disposition home or self-care (01) ==
LOC: LBO 01:22
PROVIDERS: PCP Nurse Practitioner; Visit Provider Advanced Practice Midwife
DX: Z34.91 Encounter for supervision of normal pregnancy, unspecified, first trimester (principal); Z3A.10 10 weeks gestation of pregnancy
CPT/HCPCS: 36415; 82950; 86787; 86803; 86850; 86900; 86901; 87340; 87389; 85025; 86762; 86780

== ENCOUNTER 2021-08-06 15:17 | Outpatient (REF) | payer OTHER, SELFPAY ==
[2021-08-06 12:11] LABS: *AMPHETAMINES SCREEN URINE Negative (Negative); *BARBITURATES SCREEN URINE Negative (Negative); *BENZODIAZEPINES SCREEN URINE Negative (Negative); Cannabinoids THC Negative (Negative); Cocaine Screen,Urine Negative (Negative); METHADONE URINE SCREEN Negative (Negative); OPIATES URINE SCREEN Negative (Negative); Tricyclic Antidepressants Negative (Negative)
[2021-08-07 13:55] LABS: Chlamydia Result Negative (Negative); GC Result Negative (Negative)
[2021-08-09 15:30] LABS: Buprenorphine Negative ng/mL (Cutoff: 5.0); Norbuprenorphine Negative ng/mL (Cutoff: 2.5)
== END 2021-08-06 15:18 | disposition home or self-care (01) ==
LOC: LBN 15:17
PROVIDERS: PCP Nurse Practitioner; Visit Provider Advanced Practice Midwife
DX: Z34.90 Encounter for supervision of normal pregnancy, unspecified, unspecified trimester (principal); N89.8 Other specified noninflammatory disorders of vagina
CPT/HCPCS: 80307; 87491; 87591; 87086; 87480; 87510; 87660

== ENCOUNTER 2021-08-14 02:57 | Outpatient (CLI) | payer OTHER, SELFPAY ==
[2021-08-14 09:12] LABS: Glucose 1 Hour 150 mg/dL
[2021-08-14 11:22] LABS: Glucose 3 Hour 55 mg/dL
== END 2021-08-14 02:58 | disposition home or self-care (01) ==
PROVIDERS: PCP Nurse Practitioner; Visit Provider Advanced Practice Midwife
DX: Z34.91 Encounter for supervision of normal pregnancy, unspecified, first trimester (principal)
CPT/HCPCS: 36415; 82951

== ENCOUNTER 2021-11-11 12:32 | Outpatient (CLI) | payer OTHER, SELFPAY ==
[2021-11-11 13:28] VITALS: BP 110/73; PULSE 126; PULSE 129; O2SAT 97
[2021-11-11 14:00] VITALS: BP 110/73; PULSE 128; RESP 16; TEMP 36.8; O2SAT 97
[2021-11-11] MEDS: Ondansetron 4 MG/2 ML VIAL IVP ×2 (14:18→17:32)
[2021-11-11] MEDS: Lactated Ringers 1,000 ML 150 ML IV ×2 (14:18→15:46)
[2021-11-11] MEDS: Normal Saline Flush 10 ML SYR IVP ×3 (14:18→17:40)
[2021-11-11 14:32] LABS: Source Nasal/Nares
[2021-11-11 14:41] LABS: Bilirubin Negative (Negative); Blood Negative (Negative); Clarity Clear (Clear); Glucose Negative (Negative); Ketones 40 mg/dL (Negative); Leukocyte Esterase Negative (Negative); Nitrite Negative (Negative); Specific Gravity >= 1.030 (1.005-1.025); Urobilinogen 0.2 EU/dL (Up TO 0.2)
[2021-11-11 14:48] LABS: Bacteria Moderate HPF (Negative); C & S Indicated? No/Sq. Contamination; Casts Negative LPF (Negative); Crystals Negative HPF (Negative); Epithelial Cells Many HPF (Negative); Mucus Moderate (Negative)
[2021-11-11 15:10] LABS: COVID-19 PCR Negative (Negative)
[2021-11-11] MEDS: Calcium Carbonate *TUMS* 500 MG CHEW PO (15:36)
[2021-11-11] MEDS: Phenazopyridine 100 MG TAB PO (15:42)
[2021-11-11] MEDS: Pantoprazole 40 MG VIAL IVP (17:40)
[2021-11-11] MEDS: Lactated Ringers 1,000 ML 125 ML IV (18:00)
[2021-11-12 09:05] VITALS: BP 102/62; PULSE 93
[2021-11-12 09:22] VITALS: BP 113/74; PULSE 96
== END 2021-11-11 19:00 | disposition home or self-care (01) ==
LOC: BCD 12:37 → OBS 13:18
PROVIDERS: PCP Nurse Practitioner; Visit Provider Obstetrics & Gynecology
DX: O21.9 Vomiting of pregnancy, unspecified (principal)
CPT/HCPCS: 87635; 96360; 96361; 81003; 81015; G0378; J0690; J2405

== ENCOUNTER 2021-12-12 01:19 | Outpatient (CLI) | payer OTHER, SELFPAY ==
[2021-12-12 10:06] LABS: HCT 35.5 % (36.0-46.0); HGB 11.8 g/dL (11.2-15.7); MCH 30.8 pg (27.0-33.0); MCHC 33.2 % (32.0-36.0); MCV 93 fL (80-95); MPV 8.8 fL (8.0-11.0); Platelet Count 270 10^3/uL (130-400); RBC 3.83 10^6/uL (3.93-5.22); RDW 13.3 % (11.7-14.6); RDW-SD 44.6 fL; WBC 8.12 10^3/uL (4.4-10.8)
[2021-12-12 10:17] LABS: Glucose,1 Hr (Glucola) 112 mg/dL (80-140)
== END 2021-12-12 01:20 | disposition home or self-care (01) ==
LOC: LBO 01:20
PROVIDERS: PCP Nurse Practitioner; Visit Provider Obstetrics & Gynecology Gynecology
DX: Z34.93 Encounter for supervision of normal pregnancy, unspecified, third trimester (principal); Z3A.28 28 weeks gestation of pregnancy
CPT/HCPCS: 36415; 82950; 85027

== ENCOUNTER 2022-02-13 11:10 | Outpatient (REF) | payer OTHER, SELFPAY ==
[2022-02-13 11:30] LABS: *AMPHETAMINES SCREEN URINE Negative (Negative); *BARBITURATES SCREEN URINE Negative (Negative); *BENZODIAZEPINES SCREEN URINE Negative (Negative); Cannabinoids THC Negative (Negative); Cocaine Screen,Urine Negative (Negative); METHADONE URINE SCREEN Negative (Negative); OPIATES URINE SCREEN Negative (Negative); Tricyclic Antidepressants Negative (Negative)
[2022-02-20 15:29] LABS: Buprenorphine Negative ng/mL (Cutoff: 5.0); Norbuprenorphine Negative ng/mL (Cutoff: 2.5)
== END 2022-02-13 11:11 | disposition home or self-care (01) ==
LOC: LBN 11:10
PROVIDERS: PCP Nurse Practitioner; Visit Provider Obstetrics & Gynecology
DX: Z34.93 Encounter for supervision of normal pregnancy, unspecified, third trimester (principal); Z36.85 Encounter for antenatal screening for Streptococcus B; Z3A.37 37 weeks gestation of pregnancy
CPT/HCPCS: 80307; 87081

== ENCOUNTER 2022-02-22 03:00 | Inpatient (IN) | payer OTHER, SELFPAY ==
[2022-02-22] VITALS (187 sets, daily range): BP systolic 82–128; BP diastolic 44–84; PULSE 0–107; RESP 16–18; TEMP 36.3–36.7; O2SAT 95–99; BMI 33.8
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
[2022-02-22 04:05] LABS: HCT 34.8 % (36.0-46.0); HGB 11.6 g/dL (11.2-15.7); MCH 30.2 pg (27.0-33.0); MCHC 33.3 % (32.0-36.0); MCV 91 fL (80-95); MPV 9.9 fL (8.0-11.0); Platelet Count 222 10^3/uL (130-400); RBC 3.84 10^6/uL (3.93-5.22); RDW 13.3 % (11.7-14.6); RDW-SD 43.6 fL; WBC 7.93 10^3/uL (4.4-10.8)
[2022-02-22] MEDS: FentaNYL/ROPIvacaine 2 mcg/ml and 0.1% 200 ML CADD Cassette EP (05:32)
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
--- NOTE | 2022-02-22 05:44 | W.ANESNEU ---
Epidural/Spinal Catheter Date Performed: 02/22/22 Procedure Start: 05:00 Procedure Stop: 05:25 Requesting Provider: Merna Haro Procedure Location: Obstetrics Reason Performed: Labor Epidural Standard Monitors Applied: ECG, Blood Pressure and SpO2 Patient Position: Sitting Sedation Given (Indicate Dose Given): No Sedation given Patient Mental Status: Awake Sterility: Hand Hygiene, Surgical Cap, Surgical Mask, Sterile Gloves and Chlorhexidine Procedure Location: L3-L4 Interspace Epidural Needle: Tuohy 18 Gauge Needle Length: 3.5 Inch Needle Approach: Midline Epidural Procedure: Skin Prepped, Sterile Drape Placed, 1% Lidocaine to skin and subcutaneous tissue with 25G needle, Tuohy Needle placed, RICH to Saline Used, Epidural Catheter Placed and Catheter Met Resistance, Tuohy and Catheter Removed (First attempt patient reported right-sided transient dicomfort as the catheter was advanced. After repositioning, unable to thread catheter as it had been removed. Plan to re-do procedure.) Catheter Placed?: Catheter Placed Test Dose (Indicate Dose Given): 3ml 1.5% Lidocaine with 1:200K Epinephrine Given and Negative Test Dose Loss of Resistance Depth (cm): 7 Catheter depth at skin (cm): 14 Dressing: Sorbaview Dressing Placed, Mastisol Used and Dressing reinforced with Tape Epidural Provider Bolus (Indicate Dose Given): Total bolus dose given in 3-5 ml divided doses and Total Ropivacaine 0.1% with Fentanyl 2mcg/ml Given from pump. (ml) Dose:: 3mL Additives (Indicate Dose Given ): None Infusion Medication: No Infusion Started Block Level: N/A Paresthesia: Right Paresthesia Duration: Transient Ultrasound: Used to michael site Number of Attempts (See previous attempts in note section): 2 Procedure Tolerated: No Complications Procedure Outcome: Successful Performed By: Nini Mills
[2022-02-22] MEDS: Lactated Ringers 250 ML 500 ML IV (05:45)
[2022-02-22 06:17] LABS: Source Nasal/Nares
[2022-02-22 06:52] LABS: COVID-19 PCR Negative (Negative)
--- NOTE | 2022-02-22 07:51 | W.PM.OBNL1 ---
Date of service: 02/22/22 Time of Service: 07:51 Informed Consent Informed Consent: Regional Anesthesia and Risk,Benefits,Alternatives Discussed Pelvic Exam Dilation: 5 Effacement (%): 75 station: -1 Position: OA Cervix Position: mid Consistency: soft Vaginal Exam Presentation: Cephalic Pooling: Positive Contractions Monitor Mode: External Contraction Frequency(min): 10 Contraction Duration(sec): 50 Intensity: Mild/Moderate Fetus A Monitor: External (US) Heart Rate Baseline: 150 Presentation: Cephalic Variability: Moderate (6-25 BPM) Categories: Category I FHR Rhythm: Regular Characteristics: Normal Decelerations: Early (Intermittent) Assessment and Plan Assessment and plan (1) Normal labor: Status: Acute Assessment and plan: Patient comfortable with epidural. She has demonstrated cervical change. Reactions appear irregular. If there is no cervical change in approximate 2 hours will augment with oxytocin. Patient is agreeable to the plan. Objective Abnormal lab results 02/22/22 Range/Units 03:53 RBC 3.84 L (3.93-5.22) 10^6/uL Hct 34.8 L (36.0-46.0) % Pulse BP Pulse Ox 68 102/55 L 97 02/22/22 07:50 02/22/22 07:36 02/22/22 05:46 Laboratory Results WBC 7.93 10^3/uL (4.4-10.8) 02/22/22 03:53 RBC 3.84 10^6/uL (3.93-5.22) L 02/22/22 03:53 Hgb 11.6 g/dL (11.2-15.7) 02/22/22 03:53 Hct 34.8 % (36.0-46.0) L 02/22/22 03:53 MCV 91 fL (80-95) 02/22/22 03:53 MCH 30.2 pg (27.0-33.0) 02/22/22 03:53 MCHC 33.3 % (32.0-36.0) 02/22/22 03:53 RDW 13.3 % (11.7-14.6) 02/22/22 03:53 Plt Count 222 10^3/uL (130-400) 02/22/22 03:53 MPV 9.9 fL (8.0-11.0) 02/22/22 03:53 COVID-19 Source Nasal/Nares 02/22/22 06:15 SARS-CoV-2 (PCR) Negative (Negative) 02/22/22 06:15 Patient ABO/Rh A Positive 02/22/22 03:53 Antibody Screen NEGATIVE 02/22/22 03:53 Vital Signs Reviewed: Yes Subjective Interval history since last seen: Pt began to experience increased frequency strength of contractions shortly after midnight on 02/22/2022. On arrival to the center she was 2 cm dilated with ruptured membranes. Patient requested an epidural for labor analgesia that was administered without difficulty. Patient has been sleeping since. She reports feeling numbness in her right leg but is able to move easily in the bed. Results Hemoglobin/Hematocrit: Hgb 11.6 g/dL (11.2-15.7) 02/22/22 03:53 Hct 34.8 % (36.0-46.0) L 02/22/22 03:53 Abnormal Lab Findings: Abnormal Labs 02/22/22 03:53 RBC 3.84 L Hct 34.8 L
[2022-02-22] MEDS: Lactated Ringers 1,000 ML 125 ML IV (08:45)
--- NOTE | 2022-02-22 10:13 | W.PM.OBNL1 ---
Date of service: 02/22/22 Time of Service: 10:13 Informed Consent Informed Consent: Regional Anesthesia and Risk,Benefits,Alternatives Discussed Pelvic Exam Dilation: 3 station: -3 Cervix Position: mid Consistency: soft Vaginal Exam Presentation: Cephalic Contractions Monitor Mode: External Contraction Frequency(min): irregular Intensity: Mild/Moderate Fetus A Monitor: External (US) Heart Rate Baseline: 150 Presentation: Cephalic Variability: Moderate (6-25 BPM) Categories: Category I FHR Rhythm: Regular Characteristics: Normal Accelerations: Present Decelerations: None Amniotic Membrane Status: Ruptured Assessment and Plan Assessment and plan (1) Labor abnormal: Status: Acute Assessment and plan: Arrest of dilation secondary to irreg contractions. Will begin Oxytocin augmentation of labor. Aguila catheter placed. Objective Abnormal lab results 02/22/22 Range/Units 03:53 RBC 3.84 L (3.93-5.22) 10^6/uL Hct 34.8 L (36.0-46.0) % Temp Pulse BP Pulse Ox 97.9 F 80 102/58 L 97 02/22/22 09:06 02/22/22 10:10 02/22/22 09:36 02/22/22 05:46 Laboratory Results WBC 7.93 10^3/uL (4.4-10.8) 02/22/22 03:53 RBC 3.84 10^6/uL (3.93-5.22) L 02/22/22 03:53 Hgb 11.6 g/dL (11.2-15.7) 02/22/22 03:53 Hct 34.8 % (36.0-46.0) L 02/22/22 03:53 MCV 91 fL (80-95) 02/22/22 03:53 MCH 30.2 pg (27.0-33.0) 02/22/22 03:53 MCHC 33.3 % (32.0-36.0) 02/22/22 03:53 RDW 13.3 % (11.7-14.6) 02/22/22 03:53 Plt Count 222 10^3/uL (130-400) 02/22/22 03:53 MPV 9.9 fL (8.0-11.0) 02/22/22 03:53 COVID-19 Source Nasal/Nares 02/22/22 06:15 SARS-CoV-2 (PCR) Negative (Negative) 02/22/22 06:15 Patient ABO/Rh A Positive 02/22/22 03:53 Antibody Screen NEGATIVE 02/22/22 03:53 Results Hemoglobin/Hematocrit: Hgb 11.6 g/dL (11.2-15.7) 02/22/22 03:53 Hct 34.8 % (36.0-46.0) L 02/22/22 03:53 Abnormal Lab Findings: Abnormal Labs 02/22/22 03:53 RBC 3.84 L Hct 34.8 L
[2022-02-22] MEDS: Oxytocin/Normal Saline 30 UNIT/500 ML BAG 2 UNITS IV (10:30)
[2022-02-22] MEDS: Acetaminophen 325 MG TAB 650 MG PO ×3 (10:57→21:46)
[2022-02-22] MEDS: Methylergonovine 0.2 MG/ML VIAL (15:07)
[2022-02-22] MEDS: Ibuprofen 600 MG TAB PO (17:07)
[2022-02-22] MEDS: Dibucaine 1% 28 GM TUBE TP (17:09)
[2022-02-22] MEDS: Hamamelis Leaf/Glycerin 100 EACH BOX PR (17:09)
[2022-02-23] MEDS: Ibuprofen 600 MG TAB PO ×2 (00:10→08:18)
[2022-02-23 03:30] VITALS: BP 125/75; PULSE 63; RESP 18
--- NOTE | 2022-02-23 07:54 | W.OBDELIVERY ---
Date of service: 02/22/22 Time of Service: 07:54 OB Labor/ Delivery Information Baby A Delivery Delivery Method: Spontaneaous Presentation: Cephalic Cephalic Position: Vertex Vertex Position: Left Occipital Anterior Cord Description-Baby A: 3 Vessels Cord Description Comment: Intact, normal configuration Amniotic Fluid: Clear Estimated Blood Loss: 150 Delivery Outcome: Liveborn Transferred: Remains with Mother Providers Doctor: Merna Haro Sales Representative Aircraft: Nini Mills Nurse: Daniela Hooper Nurse: Paige Shaffer Labor/Delivery Information Number of Babies in Womb: 1 Steroids Given: None Reason Steroids Not Administered: N/A Group Beta Strep: Negative Antibiotics Administered: No Rubella Status: Immune Blood Type: A+ Varicella Immunity: Immune Born En Route: No Maternal Complications: None Shoulder Dystocia: No Stages of Labor Onset of Labor Date: 02/22/22 Onset of Labor Time: 00:30 Complete Dilatation Date: 02/22/22 Complete Dilatation Time: 14:00 Labor - Stage 1 Duration: 0 minutes ROM Baby A: 02/22/22 ROM Baby A: 00:54 ROM Total Time- Baby A: [id number] Infant Delivery Date-Baby A: 02/22/22 Delivery Time-Baby A: 14:16 Labor Stage 2 Duration: 16 minutes Placenta Delivery Date-Baby A: 02/22/22 Placenta Delivery Time-Baby A: 14:19 Labor-Stage 3 Duration: 3 minutes Total Length of Labor-Baby A: 13 hours and 46 minutes Placenta Cultured: No Placenta Status: Delivered Baby A Gender: Female Gestational Status: Term (39-41.6 wks) Gestational Age in Weeks/Days: 39 Weeks and 2 Days weight: 8 lb 9 oz Length-Baby A: 20.5 in Head Circumference-Baby A: 13.5 in Score-1 Minute Interval(Baby A) Heart Rate-1 minute: 100 BPM or Greater Respiratory Effort- 1 minute: Spontaneous/Strong Cry Muscle Tone-1 minute: Active Movement Reflex Response-1 minute: Prompt Response Color-1 minute: Pallor or Cyanosis Total Score-1 minute: 8 Score-5 Minute Interval(Baby A) Heart Rate- 5 minute: 100 BPM or Greater Respiratory Effort-5 minute: Spontaneous/Strong Cry Muscle Tone-5 minute: Active Movement Reflex Response-5 minute: Prompt Response Color-5 minute: Bluish Hands or Feet Total Score- 5 minute: 9 Interventions Pain Management Interventions: Epidural./ Augmentation , Pitocin rate (mU/min): 14/ Episiotomy Episiotomy Description: None./ Repair of Laceration Type: None,
[2022-02-23] MEDS: Acetaminophen 325 MG TAB 650 MG PO (08:19)
[2022-02-23 08:39] VITALS: BP 128/74; RESP 12; TEMP 37.4
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
--- NOTE | 2022-02-23 14:01 | W.ANESPOSTOP ---
Postoperative Evaluation Date, Time and Location Date Performed: 02/23/22 Time Performed: 10:30 Patient Location: Obstetrics Vital Signs Most Recent Imported Vital Signs: Most Recent Vital Signs Temp Pulse Resp BP Pulse Ox 37.4 C 63 12 128/74 97 02/23/22 08:39 02/23/22 03:30 02/23/22 08:39 02/23/22 08:39 02/22/22 05:46 Pain Score Most Recent Pain Score: Most Recent Pain Score Pain Level 7 02/23/22 08:19 Assessment Mental Status: Awake (Alert & Oriented to Patient Baseline) Airway and Respiratory Function: Patent airway with normal (patient baseline) respiratory exam Cardiovascular Function: Hemodynamically Stable Hydration Status: Adequately Hydrated Nausea & Vomiting: No Nausea or Vomiting Pain: Pain is tolerable per patient (Uterine cramping. ) Peripheral Nerve Block: Patient did not receive a nerve block Postoperative Comments:: Excellent coverage from epidural for delivery
== END 2022-02-23 14:30 | disposition home or self-care (01) | DRG 807 ==
PROVIDERS: Admitting Provider Obstetrics & Gynecology Gynecology; PCP Nurse Practitioner; Visit Provider Obstetrics & Gynecology Gynecology
DX: O99.284 Endocrine, nutritional and metabolic diseases complicating childbirth (principal); Z37.0 Single live birth; Z3A.38 38 weeks gestation of pregnancy; O99.814 Abnormal glucose complicating childbirth; O34.83 Maternal care for other abnormalities of pelvic organs, third trimester; O99.62 Diseases of the digestive system complicating childbirth; E28.2 Polycystic ovarian syndrome; K21.9 Gastro-esophageal reflux disease without esophagitis; F90.9 Attention-deficit hyperactivity disorder, unspecified type; M25.852 Other specified joint disorders, left hip
CPT/HCPCS: 85027; 86850; 86900; 86901; 87635; J2210

== ENCOUNTER 2022-04-10 11:02 | Outpatient (REF) | payer OTHER, SELFPAY ==
--- NOTE | 2022-04-10 10:30 | PAPFT_PTH ---
PATIENT: Mayuri Fowler LOC: [facility] U#:[id number] AGE/SX: 32/F ROOM: RE04/10/[address]: Merna Haro : 1990 BED: DIS: 04/10/2022 SPEC #: [id number] RECD: 04/10/22 12:55 STATUS: HAYDEE REQ #: [id number] ARYAN: 04/10/22 10:[address]: Merna Haro DEPT: [facility] Cytology RECD BY: Zunilda Shields ENTERED: 04/10/22 12:56 SP TYPE: PAPFT OTHR DR: Marion Chaudhry Tissues: 1 - CX/ENDOCX FOR PAP SMEARS Procedures: PAP THIN PREP/UVM Screening HPV DNA PROBE Comments: [id number]
== END 2022-04-10 11:03 | disposition home or self-care (01) ==
LOC: LBN 11:02
PROVIDERS: PCP Nurse Practitioner Family; Visit Provider Obstetrics & Gynecology Gynecology
DX: Z12.4 Encounter for screening for malignant neoplasm of cervix (principal); R87.610 Atypical squamous cells of undetermined significance on cytologic smear of cervix (ASC-US); Z11.51 Encounter for screening for human papillomavirus (HPV)
CPT/HCPCS: 88142; 87624

== ENCOUNTER 2023-05-04 21:27 | Outpatient (REF) | payer OTHER, SELFPAY ==
[2023-05-04 21:04] LABS: HCT 40.1 % (36.0-46.0); MCH 29.9 pg (27.0-33.0); MCHC 32.4 % (32.0-36.0); MCV 92 fL (80-95); MPV 9.2 fL (8.0-11.0); Platelet Count 385 10^3/uL (130-400); RBC 4.35 10^6/uL (3.93-5.22); RDW 12.6 % (11.7-14.6); RDW-SD 42.9 fL; WBC 8.79 10^3/uL (4.4-10.8)
[2023-05-04 21:21] LABS: Hemoglobin A1C 5.6 % (<5.7)
[2023-05-04 21:23] LABS: ALT 23 U/L (14-59); AST 15 U/L (15-37); Albumin 4.1 g/dL (3.4-5.0); Alkaline Phosphatase 85 U/L (46-116); Anion Gap 12.6 mmol/L (3-11); BUN 15 mg/dL (7-18); Bilirubin, Total 0.2 mg/dL (0.2-1.0); CO2 25.4 mmol/L (21.0-32.0); CREATININE 0.6 mg/dL (0.55-1.02); Calcium 9.8 mg/dL (8.5-10.1); Calculated LDL 97 mg/dL (<100); Chloride 104 mmol/L (98-107); Cholesterol 175 mg/dL (<200); Estimated GFR 122.99 (mL/min/1.73m2); Glucose 93 mg/dL (74-106); HDL Cholesterol 66 mg/dL (40-60); Potassium 4.5 mmol/L (3.5-5.1); Sodium 142 mmol/L (136-145); Total Protein 7.9 g/dL (6.4-8.2); Triglyceride 64 mg/dL (<150)
== END 2023-05-04 21:28 | disposition home or self-care (01) ==
LOC: NCHCN 21:27
PROVIDERS: PCP Nurse Practitioner Family; Visit Provider Nurse Practitioner Family
DX: Z00.00 Encounter for general adult medical examination without abnormal findings (principal)
CPT/HCPCS: 80053; 80061; 85027; 83036

== ENCOUNTER → 2023-06-08 02:42 | Outpatient (CLI) | payer OTHER, SELFPAY ==
--- NOTE | 2023-06-08 08:49 | DI.MAMMO_ITS ---
Exam(s) MAMMO SCREENING EXAM: MAMMO SCREENING CLINICAL HISTORY: SCOTT HX BREAST CANCER Z80.3 SCREENING BREAST CANCER. TECHNIQUE: Bilateral full field digital CC and MLO mammographic images were obtained with 3D tomosyn thesis and utilizing computer aided detection (CAD). COMPARISON: None. This is a baseline mammogram on this 33-year-old patient who apparently has signi ficant family history. Mother and grandmother. FINDINGS: There are no CAD designations. There are no significant focal findings in the right breast. There is an area of asymmetric density in the lateral aspect of the left breast seen on the CC view l ocated 6 cm in from the nipple. This is less evident on the MLO view but nevertheless recommend furt her imaging. No malignant-appearing microcalcification groups in either breast. No significant skin thickening-retraction. IMPRESSION: 1. No radiographic evidence of malignancy in the right breast. 2. Asymmetric density lateral of center in left breast. Spot compression CC view and breast ultrasou nd recommended. There is a strong family history here. BI-RADS Category 0 - Assessment Incomplete: Need additional imaging evaluation Breast Density - Category C - Heterogeneously dense Breast density Category C or D implies that the patient has dense breast tissue. Dense breast tissue can make it harder to find cancer on a mammogram. Dense breast tissue is also associated with an incr eased risk of breast cancer. This information about the result of the mammogram report was provided to the patient to raise their awareness. Use this report when you speak with the patient about their risks for breast cancer, which includes their family history. At that time, you may recommend additional screening tests (Ultrasoun d or MRI) as these tests may add significant information. A negative radiographic report should not delay biopsy if a dominant or clinically suspicious mass is present. Up to ten percent of cancers are not identified on mammography. A negative report may reinforce clinical impression. Adenosis and dense breasts may obscure an underlying neoplasm. False positive reports average 6 to 10%. Patient will receive a letter notifying them of these results.
== END ==
PROVIDERS: PCP Nurse Practitioner Family; Visit Provider Nurse Practitioner Family
DX: Z80.3 Family history of malignant neoplasm of breast (principal); Z12.31 Encounter for screening mammogram for malignant neoplasm of breast
CPT/HCPCS: 77063; 77067

== ENCOUNTER → 2023-06-15 01:09 | Outpatient (CLI) | payer OTHER, SELFPAY ==
--- NOTE | 2023-06-15 | DI.US_ITS ---
Exam(s) MAMMO SCREEN CALL BACK UNI US BREAST LT LIMITED EXAM: MAMMO SCREEN CALL BACK UNI CLINICAL HISTORY: ASYMMETRIC DENSITY LATERAL CENTER LEFT BREAST R92.8. TECHNIQUE: Craniocaudal spot compression digital Mammography views of the leftbreast with Tomosynth esis and left breast ultrasound. COMPARISON: [facility] MAMMO SCREENING from 06/08/2023 FINDINGS: Mammography/Tomosynthesis: Masses/Architectural Distortion: None seen. Microcalcifictions: No suspicious pleomorphic-type are seen. Skin Thickening/Nipple Retraction: None. Left breast US: Echotexture: Normal appearance of the glandular tissue. Shadowing: No suspicious foci. Cyst: None. Solid lesions: None seen. Ductal dilation: None. IMPRESSION: 1. No evidence of malignancy is noted. 2. Unless there is more urgent need, follow-up screening mammography is recommended, as per [place] [employer] guidelines. 3. The findings were discussed with the patient on the date of the examination. BI-RADS Category 1 - Negative Breast Density - Category C - Heterogeneously dense A mammogram that demonstrates density of C or D indicates the patient's breast tissue is dense. Dense breast tissue is very common and is not abnormal, but dense breast tissue can make it harder to find cancer on a mammogram. Also, dense breast tissue may increase their breast cancer risk. This informa tion about the result of the mammogram report was provided to the patient to raise their awareness. U se this report when you speak with the patient about their risks for breast cancer, which includes th eir family history. At that time, you may recommend for more screening tests (Ultrasound or MRI) as t hey might be useful based on their risk. A negative radiographic report should not delay biopsy if a dominant or clinically suspicious mass is present. Up to ten percent of cancers are not identified on mammography. A negative report may reinforce clinical impression. Adenosis and dense breasts may obscure an underlying neoplasm. False positive reports average 6 to 10%. Patient will receive a letter notifying them of these results.
== END ==
PROVIDERS: PCP Nurse Practitioner Family; Visit Provider Nurse Practitioner Family
DX: Z12.31 Encounter for screening mammogram for malignant neoplasm of breast (principal); R92.333 Mammographic heterogeneous density, bilateral breasts; R92.8 Other abnormal and inconclusive findings on diagnostic imaging of breast
CPT/HCPCS: 76642; 77063; 77067

== ENCOUNTER 2025-03-28 14:44 | Outpatient (CLI) | payer OTHER, SELFPAY ==
--- NOTE | 2025-03-28 12:55 | DI.RAD_ITS ---
Exam(s) XR HIP LT COMPLETE AP PELVIS EXAM: XR HIP LT COMPLETE AP PELVIS CLINICAL HISTORY: left hip pain. TECHNIQUE: 2D digital imaging was performed of the left hip. Two views were obtained. AP pelvis and lateral left hip views were obtained. COMPARISON: CR XR HIP LT COMPLETE AP PELVIS from 05/30/2021 FINDINGS: BONES: No acute fracture is present. No bony destructive lesion is seen. JOINTS: No dislocation present. There is again seen mild spurring of the lateral aspect of the left femoral head. The joint spaces are otherwise well maintained. The sacroiliac joints and symphysis pubis are stable. SOFT TISSUE: Normal. IMPRESSION: Stable minimal degenerative changes of the left hip. DATA REPOSITORY: RADIATION DOSE DELIVERED:
== END 2025-03-28 14:45 | disposition home or self-care (01) ==
LOC: DIORS 14:44
PROVIDERS: PCP Nurse Practitioner Family; Visit Provider Student in an Organized Health Care Education/Training Program
DX: M25.852 Other specified joint disorders, left hip (principal)
CPT/HCPCS: 73502

== ENCOUNTER 2025-04-13 04:34 | Outpatient (CLI) | payer OTHER, SELFPAY ==
--- NOTE | 2025-04-13 06:45 | DI.MRI_ITS ---
Exam(s) MR LOWER JOINT LT WO EXAM: MR LOWER JOINT LT WO CLINICAL HISTORY: L HIP PAIN,femoroacetabular impingement lt hip,m25.852 TECHNIQUE: Multiplanar multisequence MRI of the hip was performed. COMPARISON: CR XR HIP LT COMPLETE AP PELVIS from 03/28/2025 FINDINGS: MARROW:There is no evidence of fracture, bone contusion, nor avascular necrosis. There are no significant osseous lesions.There is no significant osseous excrescence at the femoral head-neck junction to suggest the presence of cam- type MANUEL. No obvious pincer-type impingement. There are no synovial herniation pits evident at the upper femoral neck level. HIP JOINT SPACE: No obvious chondral defects.There is a tiny 1-2 millimeter focus of signal abnormality in the superior aspect of the acetabulum which may be a tiny degenerative subarticular cyst. There is also a small focus of subarticular bone edema in the superolateral aspect of the acetabulum. There is small marginal osteophyte at the femoral head level. There is no bone edema at this level. There is no hypertrophy of the ligamentum teres nor signal abnormality at the fovea centralis. LABRUM: There is no evidence of obvious labral tear nor evidence of paralabral cyst. TENDONS: Gluteus minimus tendon unremarkable. There is some signal abnormality in the gluteus medius tendon at the insertional aspect on the greater trochanter. No fluid collection at this level. BURSAE: There is no evidence of trochanteric bursitis. There is no evidence of iliopsoas bursitis. ISCHIAL TUBEROSITY/HAMSTRING: There is no abnormal intraosseous signal in the ipsilateral ischial tuberosity nor tear of the common hamstrings tendon attachment site at this level. OTHER: There is no abnormal intramuscular signal within the quadratus femoris to suggest the presence of impingement syndrome at this level. IMPRESSION: 1. There is some signal abnormality in the gluteus medius tendon level just lateral to the greater trochanter consistent with element of tendinitis. There is no distinct fluid collection at this level to suggest trochanteric bursitis. 2. No evidence of stress fracture, AVN, joint effusion nor obvious labral tear. 3. No obvious evidence of femoral acetabular impingement DATA REPOSITORY:
== END 2025-04-13 04:54 ==
LOC: DI 04:34
PROVIDERS: PCP Nurse Practitioner Family; Visit Provider Student in an Organized Health Care Education/Training Program
DX: M25.852 Other specified joint disorders, left hip (principal)
CPT/HCPCS: 73721

== ENCOUNTER 2025-05-14 08:22 | Outpatient (CLI) | payer OTHER, SELFPAY ==
[2025-05-14 09:52] LABS: TSH (W/Ref FT4) 0.81 uIU/mL (0.36-3.74)
[2025-05-19 19:32] LABS: IGF-1, LC/MS, S 234 ng/mL (53-331)
== END 2025-05-14 08:23 | disposition home or self-care (01) ==
LOC: LBO 08:22
PROVIDERS: PCP Nurse Practitioner Family; Visit Provider Obstetrics & Gynecology
DX: N64.3 Galactorrhea not associated with childbirth (principal)
CPT/HCPCS: 36415; 84146; 84305; 84443

== ENCOUNTER 2025-05-25 07:57 | Day surgery (SDC) | payer OTHER, SELFPAY ==
[2025-05-25] VITALS (27 sets, daily range): BP systolic 80–126; BP diastolic 47–89; PULSE 67–91; RESP 11–21; TEMP 36.4–37.1; O2SAT 93–98; BMI 32.3
--- NOTE | 2025-05-25 07:13 | PDOC.DSDIS_ITS ---
Date of service: 05/25/25 Discharge Plan Disposition Patient Disposition: Home Condition: Stable Discharge Details Attending Provider: Chito Lynn Primary Care Provider: Marion Chaudhry Home Meds and New Rx's Prescriptions: New naproxen 250 mg tablet 250 - 500 mg PO BID PRN (Reason: moderate pain and swelling) Qty: 40 0RF oxycodone 5 mg tablet 5 - 10 mg PO .q4-6h MDD 30 mg PRN (Reason: severe pain) Qty: 18 0RF Continued cholecalciferol (vitamin D3) 125 mcg (5,000 unit) capsule 125 mcg PO DAILY Discharge Instructions Additional Instructions: Surgery: Left hip arthroscopy with labral debridement and femoroplasty 05/25/25 Activity: Weightbearing as tolerated. Consider using crutches for 2-3 weeks, but may discontinue as soon as comfortable. Avoid deep hip flexion (past 90 degrees) for 4 weeks. Avoid any hip extension for 6 weeks. No cutting, p ivoting, or sports for 2-3 months. A physical therapy prescription will be sent electronically to start in about 3 weeks to focus on core strengthening, pelvis posture support, hip stability, and gradually restoring full range of motion. Prescriptions: Aspirin 81 mg take 1 daily to prevent a blood clot for 14 days, starting tomorrow Naproxen 250 mg take 1-2 every 12 hours with a meal as needed for moderate pain Oxycodone 5 mg take 1-2 every 4-6 hours as needed for severe pain You may use [id number] Tylenol (acetaminophen) as needed for mild pain. These pain medications may be taken all at once or in different combinations as needed. Also, recommend Colace (docusate) as a stool softener as surgery and pain medicine cause constipation. You may try [id number] diphenhydramine (Benadryl) 25-50 mg nightly as a sleep aid Dressings: Leave dressing in place for 3 days. May then remove and leave open to air or cover incisions with Band-Aids. Leave the sticky Steri-Strips in rocio ce until they fall off or remove them after you shower. May shower after 5 days. Follow-up: 10-[address] Lynn You may take off the leg compression stockings this evening at home. You may a lso leave them on a few days longer if you have a history of leg swelling or edema. Let us know right away if you develop any redness, drainage, fevers, chest pain, or trouble breathing. Do not drink alcohol or drive for at least 24 hours after anesthesia. Please call the office during business hours with any questions or concerns. 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
--- NOTE | 2025-05-25 07:26 | ROE_ITS ---
Operative Note Operative Note PRE-OP DIAGNOSIS: Left hip 1. Labral tear 2. Femoracetabular impingement POST-OP DIAGNOSIS: same PROCEDURE: Left hip 1. Arthroscopic labral debridement, CPT# 13295 2. Arthroscopic femoroplasty, CPT# 65924 SURGEON: Chito Lynn RENEWAL SPECIALIST: Chica Lundberg ANESTHESIA TYPE: Local By Surgeon, General LMA/ETT and Primary Nerve Block (MANNY) Refer to Anesthesia Record ESTIMATED BLOOD LOSS: 10 COMPLICATIONS: None Patient was transported to: PACU Patient's condition: stable Indications: Please see complete medical record for details. Findings: Intact femoral head and acetabular cartilage. Small area of moderate labral degenerative tearing and more moderate area of mild labral degenerative fraying of the anterior superior labrum. Moderately sized femoral head–neck CAM lesion. Procedure Description: In the operating room, general anesthesia was induced. The patient was positioned supine on the [place] table. All bony prominences were well-padded. Preoperative antibiotics were administered. The correct patient, procedure, and side of the procedure were all verified prior to incision. The femoral head offset osteophyte/cam deformity was localized under multiple fluoroscopic views including neutral, internal and external rotation, and flexion with rotation. Next, appropriate hip joint distraction was confirmed under sterile technique releasing suction seal with the hip in slight abduction by carefully placing an 18-gauge spinal needle into the hip joint and performing an air arthrogram. The needle was removed, provisional traction released, and the hip prepped and draped in the usual sterile fashion. 20 cc of 0.25% bupivacaine containing epinephrine was infiltrated about the planned portal sites. Fluoroscopically, an anterolateral portal was established with hip under about 1 cm distraction. Traction start time as noted. Through the spinal needle, a nitinol wire was inserted and the needle removed. An 11 blade was used to create a portal sized incision about the Nitinol wire. A small 4 mm dilator was passed atraumatically over the nitinol wire through the capsule into the hip joint. The nitinol wire was removed. A 6 mm dilator was then passed over the smaller one into the hip joint and the initial dilator removed. The blunt end of a switching stick was then passed into the hip joint and the last dilator removed. The camera sleeve was then inserted over the switching stick, the switching stick removed, and the arthroscope attached to the camera sleeve. An initial dry arthroscopy of the hip joint confirmed appropriate viewing portal location about the equator laterally. Using a combination of fluoroscopic guidance and arthroscopic triangulation a modified mid anterior portal was established in a similar fashion with a spinal needle and sequential dilators. Care was taken to ensure the portal was in an appropriate position and outside the labrum. A banana blade was inserted anteriorly over half pipe. The capsule was released distal to the labrum. The camera was then switched to the anterior portal, the anterolateral portal location was confirmed to be appropriate, and the banana blade brought in the anterolateral portal and another veronica-portal capsulotomy made. The camera was then switched back to the anterolateral portal. No full intraportal capsulotomy was necessary. A complete diagnostic arthroscopy of the hip was performed with relevant findings noted above. The labral tear was somewhat degenerative and with the surrounding fraying was most amenable to debridement, which was done with the mechanical shaver and the radiofrequency ablator removing abnormal labral tissue while still preserving sufficient for suction seal. The blunt end of a switching stick was left in the anterior portal, but appropriately withdrawn from hip joint. The camera was withdrawn similarly. Under direct visualization traction was gradually released at about 45 minutes. The femoral head neck junction was inspected about the zone of labral injury. The hip was brought through internal rotation, external rotation, and flexion with rotation. The margins of the cam lesion were identified, the small capsulotomies extended slightly distally. Alternating viewing and working from anterior and lateral the bone resection was carried out taking care to ensure the appropriate amount of bone was removed as best possible while recreating the severe acidity of the femoral head and neck. Alternating views, fluoroscopic images, and the saira on forward and final reverse were all used to establish a more normal and appropriate contour without over resection. The peripheral compartment was thoroughly drained of arthroscopic fluid and the shaver used to ensure all bony debris was removed. The hip was stable and after fluid evacuated, the small capsulotomies had well opposed tissue ends or not formally closed. The portals were closed using 3-0 Monocryl in a buried fashion. Steri-Strips were applied over the incisions followed by Xeroform, 4 x 4 gauze, an ABD pad, and secured with tape. The patient awoke from anesthesia without complication and was transferred to the recovery room in a stable condition. Date of Procedure: 05/25/25
[2025-05-25] MEDS: Acetaminophen 500 MG TAB 1000 MG PO (08:29)
[2025-05-25] MEDS: Celecoxib 200 MG CAP 400 MG PO (08:30)
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
[2025-05-25] MEDS: Lactated Ringers 1,000 ML 30 ML IV (08:44)
--- NOTE | 2025-05-25 09:00 | DI.RAD_ITS ---
Exam(s) XR HIP LT IN OR EXAM: XR HIP LT IN OR CLINICAL HISTORY: Femoroacetabular impingement of left hip. TECHNIQUE: 2D digital imaging was performed. COMPARISON: No exams were available for comparison FINDINGS: Fluoroscopy provided intraoperatively during left hip orthopedic procedure. See procedure report details. IMPRESSION: Radiation exposure index/cumulative dose: brian Shannon= 17.2mGy DATA REPOSITORY: RADIATION DOSE DELIVERED:
[2025-05-25] MEDS: ceFAZolin 2 GM/50 ML BAG IVPB (09:47)
[2025-05-25] MEDS: TRANEXAMIC ACID/SOD. CHL. 1,000 MG/100 ML BAG 600 MG IVPB (09:55)
--- NOTE | 2025-05-25 10:17 | W.ANESNERVE ---
Nerve Block Single Injection Procedure Date and Time Date Performed: 05/25/25 Procedure Start: 09:34 Location Where Procedure Performed Procedure Location: Day Surgery Unit Reason Performed: Postoperative Analgesia Requesting Provider: Chito Lynn Timeout Performed Timeout Performed: Yes Monitoring Used ECG, SpO2 and See EMR for corresponding vital signs Sterility Sterility: Hand Hygiene, Surgical Cap, Surgical Mask, Sterile Gloves and Chlorhexidine Sedation Given During Procedure Sedation Given (Indicate Dose Given): Versed IV Dose:: 2mg and Precedex IV Dose:: 12mcg Patient Mental Status Patient Mental Status: Awake Nerve Block 1st Nerve Block: Laterality: Left Block Type: MANNY Ultrasound Image Saved?: Yes Needle / Catheter Used: 100mm SonoPlex II Local Anesthetic Bolus (Indicate Dose Given): Lidocaine used for local infiltration of skin, Injected in 3-5ml increments after negative blood aspiration, Bupivacaine 0.5% Dose:: 10ml and Exparel Dose:: 10ml Additives (Indicate Dose Given): None Ultrasound: Sterile probe cover and gel used Nerve Stimulator: Supplement to Ultrasound use and No twitch or parasthesia noted < 0.5 mA Paresthesia: None Procedure Tolerated: No Complications and Patient tolerated well Procedure Outcome: Successful Performed By: Reji Erazo
[2025-05-25] MEDS: Bupivacaine 0.25% Pres-Free W/EPI 30 ML VIAL (10:29)
[2025-05-25] MEDS: EPINEPHrine 10 MG/10 ML ML (11:32)
[2025-05-25] MEDS: fentaNYL 100 MCG/2 ML VIAL IVP ×2 (13:37→13:43)
[2025-05-25] MEDS: HYDROmorphone 2 MG/ML SYR IVP ×2 (13:59→14:10)
--- NOTE | 2025-05-25 14:42 | W.ANESPOSTOP ---
Postoperative Evaluation Date, Time and Location Date Performed: 05/25/25 Time Performed: 14:22 Patient Location: PACU Vital Signs Most Recent Imported Vital Signs: Most Recent Vital Signs Temp Pulse Resp BP Pulse Ox 36.4 C L 76 14 124/60 97 05/25/25 14:29 05/25/25 14:29 05/25/25 14:29 05/25/25 14:29 05/25/25 14:29 Pain Score Most Recent Pain Score: Most Recent Pain Score Pain Level 2 05/25/25 14:29 Assessment Mental Status: Awake (Alert & Oriented to Patient Baseline) Airway and Respiratory Function: Patent airway with normal (patient baseline) respiratory exam Cardiovascular Function: Hemodynamically Stable Hydration Status: Adequately Hydrated Nausea & Vomiting: No Nausea or Vomiting Pain: Pain is tolerable per patient Peripheral Nerve Block: Regional nerve block not resolved at time of post operative discharge
[2025-05-25] MEDS: oxyCODONE 5 MG TAB PO (15:46)
== END 2025-05-25 16:08 | disposition home or self-care (01) ==
LOC: SUR 07:58
PROVIDERS: PCP Nurse Practitioner Family; Visit Provider Student in an Organized Health Care Education/Training Program
PROC: (CPT 29860; principal; 2025-05-25 09:30)
DX: S73.192A Other sprain of left hip, initial encounter (principal); M25.852 Other specified joint disorders, left hip; X58.XXXA Exposure to other specified factors, initial encounter; G89.18 Other acute postprocedural pain
CPT/HCPCS: 29914; 29862; 64447; 81025; 73501; J0665; J0666; J0690; J1100; J1171; J2250; J2371; J2405; J2704; J3010